=== PATIENT | female | born 1990 | race Caucasian/White ===

== ENCOUNTER 2022-01-06 23:45 | Outpatient (CLI) | payer OTHER, SELFPAY ==
[2022-01-07] VITALS (7 sets, daily range): BP systolic 123–139; BP diastolic 86–92; PULSE 74–83; TEMP 36.3; O2SAT 97–98; BMI 40.4
[2022-01-07 00:53] LABS: ROM Internal Control Test YES-OK TO RESULT pt. (Internal QC); ROM Patient Test Negative (Negative)
[2022-01-07 01:21] LABS: Hematocrit 33.5 % (37-47); Hemoglobin 11.1 g/dL (12.0-15.0); Mean Corp Hgb Conc 33.1 g/dL (32-36); Mean Corpuscular Hgb 31.4 pg (27.0-32.0); Mean Corpuscular Volume 94.6 fL (81-99); Mean Platelet Vol. 11.2 fl (6.2-12.0); Platelet Count 177 K/mm3 (150-450); RBC Distribution Width CV 12.8 % (11.6-14.6); RBC Distribution Width SD 44.6 fl (35.1-43.9); Red Blood Count 3.54 M/mm3 (4.2-5.4); White Blood Count 13.6 K/mm3 (4.4-11.0)
[2022-01-07 01:48] LABS: AST(SGOT) 17 U/L (15-37); Alanine Aminotransfer ALT/SGPT 19 U/L (13-56); Creatinine, Serum 0.62 mg/dL (0.55-1.02); EST Glomerular Filtration Rate 118 mL/min (>60); Est Glom Filt Rate - Afr Amer 143 mL/min (>60); Estimated Creatinine Clearance 108.76 ml/min; Protein, Urine (Random) 28.8 mg/dL (<11.9); Protein:Creat Ratio 133 mg/g CRE (0-200)
--- NOTE | 2022-01-07 07:34 | OB.TRI.NOTE ---
HPI - General General Date of Admission: 01/06/22 Date of Service: 01/06/22 Chief Complaint: vaginal discharge in HPI Narrative DAWSON SPRING, is a 2 para 0 who presented at 38-2/7 weeks with complaint of vaginal discharge. She stated that it was constantly trickling from her vagina. She had some irregular contractions. She denied any vaginal bleeding. PFSH PFSH Home Medications docosahexaenoic acid 200 mg capsule ( DHA) mg PO 01/07/22 [History Last Taken Unknown] ferrous sulfate 325 mg (65 mg iron) tablet (iron) 325 mg PO DAILY 01/07/22 [History Last Taken Unknown] Allergy/AdvReac Type Severity Reaction Status Date / Time No Known Allergies Allergy Verified 01/07/22 00:07 NST FHR Rate Baby A Baseline: 130 Variability:: Moderate Accelerations:: 15 x 15 Decelerations:: None NST Reactive:: Yes FHR Category:: Category I Uterine Activity:: q3-6 min Assessment & Plan (1) False labor: PLAN: Nonstress test is reactive. No evidence of preeclampsia. No evidence of rupture membranes. Discharged home. Follow-up in the office to monitor blood pressures.
== END 2022-01-07 02:15 | disposition home or self-care (01) ==
LOC: WPOUT 23:56 → WP 23:57
PROVIDERS: Visit Provider Obstetrics & Gynecology
DX: O47.1 False labor at or after 37 completed weeks of gestation (principal); Z3A.38 38 weeks gestation of pregnancy
CPT/HCPCS: 36415; 59025; 59050; 82565; 82570; 84112; 84156; 84450; 84460; 84550; 85027; 99218; G0378

== ENCOUNTER 2022-01-07 15:45 | Inpatient (IN) | payer OTHER, SELFPAY ==
[2022-01-07] VITALS (11 sets, daily range): BP systolic 120–140; BP diastolic 67–87; PULSE 71–95; TEMP 36.3–37; O2SAT 97–98; BMI 40.2
[2022-01-07 16:47] LABS: Absolute Lymphocyte Count 2.83 X10^3/uL (0.83-4.51); Basophil# 0.06 X10^3/uL; Basophil% 0.5 % (0-1); Eosinophil# 0.02 X10^3/uL; Eosinophils% 0.2 % (0-5); Hematocrit 35.1 % (37-47); Hemoglobin 11.8 g/dL (12.0-15.0); Lymphocyte # 2.83 X10^3/ul (0.83-4.51); Mean Corp Hgb Conc 33.6 g/dL (32-36); Mean Corpuscular Hgb 31.6 pg (27.0-32.0); Mean Corpuscular Volume 93.9 fL (81-99); Mean Platelet Vol. 11.3 fl (6.2-12.0); Monocyte# 0.82 X10^3/uL; Monocyte% 6.4 % (0-10); NRBC Flagged by Analyzer 0 % (0-5); Neutrophil # 8.97 X10^3/uL (2.7-7.7); Neutrophil % 69.8 % (47-70); Platelet Count 190 K/mm3 (150-450); RBC Distribution Width CV 12.9 % (11.6-14.6); RBC Distribution Width SD 43.9 fl (35.1-43.9); Red Blood Count 3.74 M/mm3 (4.2-5.4); White Blood Count 12.8 K/mm3 (4.4-11.0)
[2022-01-07 17:07] LABS: AST(SGOT) 19 U/L (15-37); Alanine Aminotransfer ALT/SGPT 17 U/L (13-56); Creatinine, Serum 0.61 mg/dL (0.55-1.02); EST Glomerular Filtration Rate 121 mL/min (>60); Est Glom Filt Rate - Afr Amer 147 mL/min (>60); Estimated Creatinine Clearance 110.54 ml/min; Uric Acid 5.3 mg/dL (2.6-6.0)
[2022-01-07] MEDS: miSOPROStol 25 MCG TABLET PO (17:07)
--- NOTE | 2022-01-07 17:52 | HP.PCM.OB_ITS ---
HPI - General General Date of Admission: 01/07/22 HPI Narrative DAWSON SPRING, is a 31 F at 38.2 weeks gestation who presents for induction of labor for gestational hypertension. She was seen in office with elevated blood pressures ranging from 140-150's/ 90-100's. complicated by obesity, anemia, and Rubella non-immune status. Maternal Data Information [place] Calculator 2 Estimated Delivery Date Method Current WG Current Estimate 01/19/22 Manual 38w 2d PFSH PFS Medical History (Updated 01/07/22 @ 17:57 by Fatou Sal CNM) Gestational HTN (~01/07/22) Seizures (Unknown) Home Medications docosahexaenoic acid 200 mg capsule ( DHA) 200 mg PO DAILY 01/07/22 [History Last Taken 01/05/22 15:00] ferrous sulfate 325 mg (65 mg iron) tablet (iron) 325 mg PO DAILY 01/07/22 [History Last Taken 01/05/22 15:00] Allergy/AdvReac Type Severity Reaction Status Date / Time No Known Allergies Allergy Verified 01/07/22 16:15 Surgical History no surgical history Social History Smoking Status: Never smoker History Elective abortions Hx Para 0 Spontaneous abortions Hx # Term Pregnancies Ectopic pregnancies Hx # Pregnancies Multiple births # of living children NST FHR Rate Baby A Baseline: 140 Variability:: Moderate Accelerations:: 15 x 15 Decelerations:: None NST Reactive:: Yes FHR Category:: Category I Uterine Activity:: irritability ROS Eyes Eyes: Denies blurry vision Cardiovascular Cardiovascular: Reports none; Denies chest pain at rest, chest pain with activity or dizziness Respiratory/Chest Respiratory/Chest: Denies cough or dyspnea Gastrointestinal Gastrointestinal: Reports none and other; Denies diarrhea or vomiting Genitourinary Genitourinary: Denies dysuria Musculoskeletal Musculoskeletal: Reports none Integumentary Integumentary: Reports none; Denies rash Neurologic Neurologic: Denies dizziness, headache(s) or other visual disturbances Psychiatric Psychiatric: Reports none Vital Signs Vital Signs Vital Signs: 01/07/22 16:26 01/07/22 16:26 01/07/22 16:26 Temperature Temperature Source Temporal Pulse Rate 82 Blood Pressure 134/80 H BP Systolic 134 BP Diastolic 80 Pulse Ox 01/07/22 16:26 01/07/22 16:26 01/07/22 16:49 Temperature 97.9 F Temperature Source Pulse Rate Blood Pressure 132/85 H BP Systolic 132 BP Diastolic 85 Pulse Ox 98 01/07/22 16:49 01/07/22 16:49 01/07/22 17:40 Temperature Temperature Source Temporal Pulse Rate 75 Blood Pressure BP Systolic BP Diastolic Pulse Ox 97 01/07/22 17:40 01/07/22 17:40 01/07/22 17:40 Temperature Temperature Source Pulse Rate 75 Blood Pressure 124/67 H BP Systolic 124 BP Diastolic 67 Pulse Ox 98 01/07/22 17:40 Temperature 97.8 F Temperature Source Pulse Rate Blood Pressure BP Systolic BP Diastolic Pulse Ox Weight Weight: 227 lb 1.218 oz Body Mass Index (BMI) 40.2 Physical Exam Const alert and no apparent distress General Appearance: cooperative Orientation / Consciousness: awake Exam Limitations: no limitations HEENT normocephalic Eyes General Eye: normal appearance of both eyes Neck full ROM Chest inspection of chest normal Resp normal respiratory effort and normal air movement Effort and Inspection: symmetric chest movement Auscultation: clear to auscultation bilaterally Cardio regular rate GI soft to palpation, non-tender and non-distended Inspection: and other Back/Spine normal ROM Extremity full ROM, normal capillary refill and no calf tenderness Skin no rashes or lesions noted Neuro oriented x3 and CN's II-XII intact bilaterally Psych mental status grossly normal Labs Labs Labs: Blood Type B POSITIVE Antibody Screen NEGATIVE Hct 35.1 % (37-47) L Hgb 11.8 g/dL (12.0-15.0) L Rubella NON IMMUNE HB- neg HC- neg HIV- NR RPR-NR GBS POSITIVE Assessment & Plan (1) 38 weeks gestation of : (2) Gestational HTN: (3) Obesity affecting : (4) Anemia affecting , antepartum: (5) Rubella non-immune status, antepartum: (6) Positive GBS test: PLAN: Plan Admit to labor and delivery Activate hypertension protocol PIH labs Start IV and run fluids per orders GBS positive- Start PCN protocol Start Cytotec 25 mcg PO every 4 hours CE /-3 Rowley bulb inserted without difficulty
[2022-01-07] MEDS: Lactated Ringers 1,000 ML 50 ML IV (18:00)
[2022-01-07] MEDS: 0.9% Normal Saline Single 100 ML IV.SOLN. INTRA-UTER (18:40)
[2022-01-07] MEDS: Oxytocin 30 units/NS 500 ml 30 UNITS/500 ML IV.SOLN IV (21:11)
[2022-01-07] MEDS: LACTATED RINGERS 500 ML 999 ML IV ×2 (22:01→23:21)
[2022-01-08] VITALS (47 sets, daily range): BP systolic 108–144; BP diastolic 55–91; PULSE 70–109; RESP 14–17; TEMP 36.2–37.2; O2SAT 97–100
[2022-01-08] MEDS: fentaNYL-bupivacaine (epidural) 100 ML BAG EPIDURAL ×2 (00:30→04:36)
[2022-01-08] MEDS: Penicillin G 3,000,000 Units 50 ML 100 UNITS IV ×2 (01:10→05:18)
--- NOTE | 2022-01-08 01:55 | PCM.PN.OB ---
Subjective Subjective Patient seen at bedside. Comfortable with epidural. Objective Data Objective Data Vital Signs: Vital Signs Temp Pulse BP Pulse Ox 97.9 F 81 118/62 99 01/08/22 00:50 01/08/22 01:34 01/08/22 01:34 01/08/22 00:51 Weight: 227 lb 1.218 oz Body Mass Index (BMI) 40.2 Intake & Output: Intake and Output for Last 24 Hours 01/06/22 01/07/22 01/08/22 23:59 23:59 23:59 Intake Total 1351.69 / 1351.69 Balance 1351.69 / 1351.69 Lab / Micro Data Result Diagrams: 01/07/22 16:20 01/07/22 16:20 Labs: Laboratory Results - last 24 hr 01/07/22 16:20: WBC 12.8 H, RBC 3.74 L, Hgb 11.8 L, Hct 35.1 L, MCV 93.9, MCH 31.6, MCHC 33.6, RDW Std Deviation 43.9, RDW Coeff of Dotty 12.9, Plt Count 190, MPV 11.3, Immature Gran % (Auto) 1.100 H, Neut % (Auto) 69.8, Lymph % (Auto) 22.0, [place] % (Auto) 6.4, Eos % (Auto) 0.2, Baso % (Auto) 0.5, Absolute Neuts (auto) 9.0 H, Absolute Lymphs (auto) 2.83, Nucleated RBC % 0 01/07/22 16:20: Blood Type B POSITIVE, Antibody Screen NEGATIVE 01/07/22 16:20: Creatinine 0.61, Estim Creat Clear Calc 110.54, Est GFR (MDRD) Af Amer 147, Est GFR (MDRD) Non-Af 121, Uric Acid 5.3, AST 19, ALT 17 Micro: Microbiology 01/07/22 16:20 Nasal Secretion SARS-CoV-2 Antigen (Rapid) - Final ROS Eyes Eyes: Denies blurry vision, change in vision or spots in vision ENT HEENT: Denies dizziness or headache(s) Cardiovascular Cardiovascular: Denies abdominal pain, chest pain or dyspnea Respiratory/Chest Respiratory/Chest: Denies dyspnea Gastrointestinal Gastrointestinal: Denies abdominal pain Genitourinary Genitourinary: Denies difficulty urinating Musculoskeletal Musculoskeletal: Reports none Integumentary Integumentary: Denies rash Neurologic Neurologic: Denies dizziness, headache(s), memory loss or weakness Assessment & Plan (1) Positive GBS test: (2) Rubella non-immune status, antepartum: (3) Obesity affecting : (4) Gestational HTN: (5) 38 weeks gestation of : PLAN: Plan BP's within normal ranges GBS positive- adequately treated with PCN- continue protocol AROM for copious amounts of clear fluid CE /-2 IUPC and FSE placed due to difficulty monitoring Pitocin at 6mu/min- continue to increase per policy Anticipate
[2022-01-08] MEDS: LACTATED RINGERS 500 ML 999 ML IV (02:54)
[2022-01-08] MEDS: Lactated Ringers 1,000 ML 200 ML IV (03:25)
[2022-01-08] MEDS: Ondansetron 4 MG/2 ML Vial IV (06:40)
[2022-01-08] MEDS: Mag Hydrox/Al Hydrox/Simeth 30 ML UDC PO (06:44)
--- NOTE | 2022-01-08 07:19 | PCM.PN.BLA ---
Progress Note Patient 10cm and feeling pressure. Starting to push with contractions. Comfortable with epidural. Physical Exam Const alert and no apparent distress General Appearance: cooperative and comfortable Exam Limitations: no limitations HEENT normocephalic Eyes General Eye: normal appearance of both eyes Neck full ROM General: normal visual inspection Chest Chest: symmetrical chest wall rise Resp normal respiratory effort and normal air movement Effort and Inspection: symmetric chest movement Auscultation: clear to auscultation bilaterally Cardio regular rate and regular rhythm GI normal to inspection, nondistended, normoactive bowel sounds Back/Spine normal ROM Extremity full ROM and no calf tenderness General Extremity: normal exam except as noted Skin no rashes or lesions noted Neuro CN's II-XII intact bilaterally Psych mental status grossly normal Assessment & Plan Assessment/Plan (1) 38 weeks gestation of : (2) Gestational HTN: (3) Obesity affecting : (4) Anemia affecting , antepartum: (5) Positive GBS test: (6) Rubella non-immune status, antepartum: PLAN: Plan Continue pushing with contractions Pitocin 8mu/min Anticipate Dr. James updated and will be assuming care of patient
[2022-01-08] MEDS: Oxytocin 30 units/NS 500 ml 30 UNITS/500 ML IV.SOLN 334 UNITS IV (08:48)
--- NOTE | 2022-01-08 09:23 | PCM.OPRPT ---
Problems Associated Problem List Diagnoses (1) Positive GBS test: (2) Obesity affecting : (3) Gestational HTN: (4) 38 weeks gestation of : Report of Operation Date of Procedure: 01/08/22 Pre-Operative Diagnosis: 38 week gestation, obesity in , gHTN, induction of labor Post-Operative Diagnosis: As above Surgery/Procedure Performed:: 2nd degree perineal laceration repair Description of Surgical Findings:: VMI in OP position. Apgars 8, 9. 2nd degree perineal laceration. True knot in the cord. Normal appearing placenta with 3 VC Surgeon: Patricia James pharmacist intern: None Type of Anesthesia: Epidural Special Medications: None Specimen's removed: Placenta Drains: Rowley catheter which fell out during pushing process Estimated Blood Loss (mL): 100 Fluids Replaced: N/A Description of Procedure: Patient complete and pushing. OP position noted. FHT with decels with pushing, but great progress and good maternal effort. FHT recovered to baseline in between pushing with moderate variability. Head delivered in OP position, followed by both shoulders and body without any force or delay. A vigorous VMI was placed on maternal abdomen. Apgars 8, 9. A true knot was noted in the cord. The cord was clamped and cut after a 60 sec delay by FOB. Placenta delivered with fundal massage. Uterus explored x 1. Fundus firm and bleeding hemostatic. 3-0 Vicryl was used to repair a 2nd degree perineal laceration in usual fashion. A vaginal sweep performed. Instrument, sponge and needle counts correct. Grafts/Implants Used: None Complications None Admit VTE Documentation VTE Present on Admission: No
[2022-01-08] MEDS: Ibuprofen 600 MG Tablet PO ×2 (10:47→21:38)
[2022-01-09] VITALS (8 sets, daily range): BP systolic 116–147; BP diastolic 57–97; PULSE 74–85; RESP 16–18; TEMP 36.3–36.8; O2SAT 96–98
[2022-01-09] MEDS: Ibuprofen 600 MG Tablet PO (04:16)
--- NOTE | 2022-01-09 07:05 | PCM.PN.OB ---
Subjective Subjective Patient doing well. Pain well controlled. Ambulating and voiding without difficulty. Tolerating a regular diet. Lochia normal. Going to work on pumping with today. She denies chest pain, shortness of breath, leg pain. She desires discharge today. Objective Data Objective Data Vital Signs: Vital Signs Temp Pulse Resp BP Pulse Ox O2 Del Method 97.8 F 77 16 116/70 96 Room Air 01/09/22 04:11 01/09/22 04:11 01/09/22 04:11 01/09/22 04:11 01/09/22 04:11 01/09/22 04:11 Oxygen Delivery Method Room Air Weight: 227 lb 1.218 oz Body Mass Index (BMI) 40.2 Intake & Output: Intake and Output for Last 24 Hours 01/07/22 01/08/22 01/09/22 23:59 23:59 23:59 Intake Total 1351.69 / 1351.69 3170.24 / 3170.24 Output Total 200 / 200 1550 / 1550 Balance 1151.69 / 1151.69 1620.24 / 1620.24 Lab / Micro Data Result Diagrams: 01/07/22 16:20 01/07/22 16:20 Micro: Microbiology 01/07/22 16:20 Nasal Secretion SARS-CoV-2 Antigen (Rapid) - Final Physical Exam Const alert and no apparent distress General Appearance: comfortable Assessment & Plan (1) Vaginal delivery: PLAN: - PPD#1 s/p . gHTN and BP's normal. No symptoms of pre e. Doing well and meeting milestones for discharge. Dispo: Desires discharge today and instructions reviewed.
--- NOTE | 2022-01-09 07:09 | DCINST_ITS ---
Discharge Instructions Diet Discharge Diet: No restrictions Activity Discharge Activity: May Shower May resume sexual activity in: 6 weeks Ice area for (Minutes): 15 Weight Bearing Status: Weight bearing as tolerated Lifting Restrictions: nothing heavier than baby Dressing / Incision Call your doctor if your incision/area has: Increased Pain/ Swelling, Increased Redness and Foul Smelling Discharge Call your doctor if you observe: Fever of 101 or Higher, Coldness, Increased Pain, Numbness or Tingling, Change in Color, Inability to urinate, Inability to have a bowel movement, Using more than 1 pad per hour, Shortness of breath, Dizziness, Fainting spells, Swelling in the ankles, Chest pain, Increased palpitations (irregular heartbeat), Calf discomfort, Uncontrolled pain and - (Headache that does not improve with Tylenol, visual changes) Cleanse incision/area with: Soap & Water Follow Up Care Please Follow Up With: Patricia James DO When: 1-2 weeks if you desire 6 week for visit Test Results: Test results from this visit will be discussed in further detail at your follow- up appointment, if applicable. Discharge Plan Admission Admit Date/Time: 01/07/22 15:45 Primary Reason for Your Visit: delivery Attending Provider: Patricia James Primary Care Provider: Care Physician,Genesis Primary Discharge Orders/Prescriptions Prescriptions: New ibuprofen 600 mg tablet 600 mg PO Q6H PRN (Reason: pain) Qty: 30 0RF Continued DHA 200 mg Capsule 200 mg PO DAILY Discontinued ferrous sulfate [iron] 325 mg (65 mg iron) Tablet 325 mg PO DAILY Referrals / Follow Up: Care Physician,No Primary [Primary Care Provider] - Disposition Disposition (needs filled in before D/C Order can be placed): Home, Self Care
== END 2022-01-09 14:05 | disposition home or self-care (01) | DRG 807 ==
PROVIDERS: Advanced Practice Midwife; Admitting Provider Obstetrics & Gynecology; Visit Provider Obstetrics & Gynecology
DX: O13.1 Gestational [pregnancy-induced] hypertension without significant proteinuria, first trimester (principal); Z37.0 Single live birth; E66.9 Obesity, unspecified; B95.1 Streptococcus, group B, as the cause of diseases classified elsewhere; O70.1 Second degree perineal laceration during delivery; O99.824 Streptococcus B carrier state complicating childbirth; Z3A.38 38 weeks gestation of pregnancy; O99.214 Obesity complicating childbirth; O69.2XX0 Labor and delivery complicated by other cord entanglement, with compression, not applicable or unspecified
CPT/HCPCS: 59025; 59050; 82565; 84450; 84460; 84550; 85025; 86850; 86900; 86901; 87811; 99218; J7120; G0378; J2405

== ENCOUNTER 2023-08-21 11:57 | Day surgery (SDC) | payer OTHER, SELFPAY ==
[2023-08-21] VITALS (8 sets, daily range): BP systolic 117–159; BP diastolic 78–91; PULSE 71–83; RESP 16; TEMP 36.3–37.3; O2SAT 97–100; BMI 37.8
--- NOTE | 2023-08-21 | POC_PTH ---
PATIENT: DAWSON SPRING [place] [facility] [id number] AGE/SX: 33/F ROOM: RE08/21/[address]: Dr. Patricia James DO : 1990 BED: DIS: 08/21/2023 SPEC #: [id number] RECD: 08/21/23 15:49 STATUS: TYRONE REMusa #: [id number] TREVOR: 08/21/23 00:[address]: Patricia James DEPT: SURGICAL PATHOLOGY RECD BY: Robby Hong ENTERED: 08/24/23 10:19 SP TYPE: PROD CONC OTHR DR: No Primary Care Phys Tissues: Product of conception, NOS Procedures: Surgery Specimen Level IV HEADER OPERATION: Dilation and Curettage, suction PRE-OP DIAGNOSIS: Missed TISSUE SUBMITTED: Products of conception MICROSCOPIC DIAGNOSIS Products of conception, dilation and curettage: Immature placental tissue, tissue and gestational endometrium (products of conception), clinically incomplete . SJ: 08/25/2023 MICROSCOPIC DESCRIPTION Slides are reviewed. GROSS DESCRIPTION Received in fixative is one container labeled with the patient's name and designated Product of conception. The specimen consists of multiple irregular fragments of hemorrhagic soft tissue that in aggregate measure 9.0 x 9.0 x 3.0 cm. tissue is not identified. The specimen is totally submitted in three cassettes. JULIET/ 08/24/2023 TC:5 CPT:50020
[2023-08-21] MEDS: Doxycycline 100 MG CAPSULE 200 MG PO (13:19)
[2023-08-21] MEDS: Lactated Ringers 1,000 ML 15 ML IV (13:19)
[2023-08-21 13:24] LABS: Hematocrit 39.8 % (37-47); Hemoglobin 13.1 g/dL (12.0-15.0); Mean Corp Hgb Conc 32.9 g/dL (32-36); Mean Corpuscular Volume 94.1 fL (81-99); Mean Platelet Vol. 10.7 fl (6.2-12.0); Platelet Count 222 K/mm3 (150-450); RBC Distribution Width CV 12.3 % (11.6-14.6); RBC Distribution Width SD 42.8 fl (35.1-43.9); Red Blood Count 4.23 M/mm3 (4.2-5.4); White Blood Count 11.5 K/mm3 (4.4-11.0)
[2023-08-21] MEDS: Lidocaine 1% /Epi 1:100 (20ml) 20 ML Vial (14:25)
--- NOTE | 2023-08-21 14:34 | DCINST_ITS ---
Discharge Instructions Diet Discharge Diet: No restrictions Activity Discharge Activity: May Not Drive (for 24 hours after the procedure) and May Not Shower (for 24 hours after the procedure) May resume sexual activity in: 1-2 weeks (nothing in the vagina and no soaking in water while you are bleeding for 1-2 weeks) Weight Bearing Status: Weight bearing as tolerated Lifting Restrictions: none Dressing / Incision Call your doctor if you observe: Fever of 101 or Higher, Coldness, Increased Pain, Numbness or Tingling, Change in Color, Inability to urinate, Inability to have a bowel movement, Using more than 1 pad per hour, Shortness of breath, Dizziness, Fainting spells, Swelling in the ankles, Chest pain, Prolonged hiccupping, Increased palpitations (irregular heartbeat), Calf discomfort and Uncontrolled pain Follow Up Care Please Follow Up With: Patricia James DO When: 1-2 weeks for a post operative visit Test Results: Test results from this visit will be discussed in further detail at your follow- up appointment, if applicable. Discharge Plan Admission Primary Reason for Your Visit: Surgery Attending Provider: Patricia James Primary Care Provider: Care Genesis Downs Primary Discharge Orders/Prescriptions Prescriptions: Continued DHA 200 mg Capsule 200 mg PO DAILY Hold Instructions: STOPPED TAKING ibuprofen 600 mg tablet 600 mg PO Q6H PRN (Reason: pain) Qty: 30 0RF Referrals / Follow Up: Care PhysicianGenesis Primary [Primary Care Provider] - Disposition Disposition (needs filled in before D/C Order can be placed): Home, Self Care
--- NOTE | 2023-08-21 14:35 | PCM.OPRPT ---
Problems Associated Problem List Diagnoses (1) Missed : Report of Operation Date of Procedure: 08/21/23 Pre-Operative Diagnosis: MAB at 9 weeks Post-Operative Diagnosis: As above Surgery/Procedure Performed:: Suction D&C under ultrasound guidance Description of Surgical Findings:: Enlarged uterus 9 week size. Intrauterine pole noted without cardiac activity at the start of the procedure. Surgeon: Patricia James ceramics technician: None Type of Anesthesia: MAC Special Medications: None Specimen's removed: Products of conception Drains: None Estimated Blood Loss (mL): < 50 Fluids Replaced: See anethesia record Description of Procedure: The patient was seen in pre op and discussed suction D&C, and option for genetic testing. Patient desired to proceed with suction D&C. Patient declined genetic testing. The patient requested that an ultrasound be performed in pre op before the start of the procedure. A beside TAUS was performed noted a single, non viable intrauterine . The patient was taken to the operating room where MAC anesthesia was induced. She was prepped and draped in the dorsal lithotomy position using yellowfin stirrups. A weighted speculum was placed in the vagina to expose the cervix. The anterior lip of the cervix was grasped with a single-tooth tenaculum. 10 cc of 1% lidocaine with epinephrine was injected circumferentially within the cervix. The cervix was serially dilated to accommodate a size 10 mm curved suction curettage. A suction curettage was performed using the size 10 mm curved suction to remove the products of conception. Once tissue was no longer noted, a sharp curettage was then performed along each uterine wall noting a good uterine cry. Nursing staff held the transabdominal ultrasound probe on the abdomen under my guidance during the procedure to visualize the uterus during the suction curettage, and the suction curettage was performed under ultrasound guidance. I performed a transabdominal ultrasound at the end of the procedure, and confirmed no retained products of conception. Bleeding was hemostatic. Instruments were removed from the vagina. A vaginal sweep was performed. Instrument, sharp, sponge counts were correct. The patient was taken to the recovery room in stable condition. Grafts/Implants Used: None Procedure Start Time: 14:04 Procedure Stop Time: 14:27 Complications None Admit VTE Documentation VTE Present on Admission: No VTE Mechan Device Prophylaxis: SCD's
== END 2023-08-21 16:15 | disposition home or self-care (01) ==
LOC: SDC 12:03 → AC 12:03
PROVIDERS: Referring Provider Obstetrics & Gynecology; Visit Provider Obstetrics & Gynecology
PROC: (CPT 59820; principal; 2023-08-21 13:50)
DX: O02.1 Missed abortion (principal)
CPT/HCPCS: 59820; 01965; 85027; 86850; 86900; 86901; 88305; J7120; J2405